=== PATIENT | male | born 1975 | race Hispanic/Latino ===

== ENCOUNTER 2019-12-04 10:39 | Emergency (ER) | payer OTHER, SELFPAY ==
[2019-12-04] MEDS ORDERED: Adacel (T-DAP) 0.5 ML SYRINGE ONE (11:56)
[2019-12-04] MEDS ORDERED: Bupivacaine 0.5% 10 ML VIAL ONE (12:16)
[2019-12-04] MEDS ORDERED: Lidocaine 1% (PF) 30 ML VIAL ONE (12:16)
[2019-12-04] MEDS ORDERED: Bacitracin 1 PK ONE (13:05)
--- NOTE | 2019-12-04 13:41 | RAD ---
XR Finger(s) Rt Min 2 View INDICATION: Laceration to the right finger COMPARISON: None. FINDINGS: Bones: No acute fracture or subluxation is demonstrated. Soft tissues: Soft tissue swelling surrounding the DIP joint of the right index finger. No radiopaque foreign body is demonstrated. 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 IMPRESSION: No acute osseous abnormality. No radiopaque foreign body.
== END 2019-12-04 14:22 | disposition home or self-care (01) ==
LOC: ERS 10:39
DX: S56.421A Laceration of extensor muscle, fascia and tendon of right index finger at forearm level, initial encounter (principal); Z23 Encounter for immunization; W26.8XXA Contact with other sharp object(s), not elsewhere classified, initial encounter
CPT/HCPCS: 12002; 90471; 90715; J2001; J3490